=== PATIENT | female | born 1975 | race Caucasian/White ===

== ENCOUNTER 2021-03-26 10:54 | Emergency (ER) | payer OTHER ==
[~2021-03-26] VITALS: Ht 157.5 cm; Wt 92.8 kg
[2021-03-26 11:01] VITALS: BP 130/81
[2021-03-26] MEDS ORDERED: AMOX-422 PO (13:35)
[2021-03-26] MEDS ORDERED: bacitracin 15gm ointment TP ONE (13:35)
[2021-03-26] MEDS ORDERED: TETanus/Pertussis (Acell)/Diphther VAC/PF (Tdap-Adult) 0.5ml syringe IMVAC ONE (13:35)
[2021-03-26] MEDS ORDERED: HYDROcodone/acetaminophen 5mg/325mg tablet PO ONE (14:00)
== END 2021-03-26 15:08 | disposition home or self-care (01) ==
LOC: ER 10:55
DX: S20.01XA Contusion of right breast, initial encounter (principal); Z79.82 Long term (current) use of aspirin; Z79.2 Long term (current) use of antibiotics; W54.0XXA Bitten by dog, initial encounter; Y93.89 Activity, other specified; Y92.89 Other specified places as the place of occurrence of the external cause; Y99.8 Other external cause status
CPT/HCPCS: 90471; 90715; 99283

== ENCOUNTER 2021-03-31 07:28 | Emergency (ER) | payer OTHER ==
[~2021-03-31] VITALS: Ht 157.5 cm; Wt 81.8 kg
[~2021-03-31 07:28] MED LIST: AMOX-422 PO
[2021-03-31 07:38] VITALS: BP 114/67
[2021-03-31] MEDS ORDERED: AMOX-580 PO (09:28)
--- NOTE | 2021-03-31 09:59 | NUR ---
pt was seen and discharged before nurse had seen pt.
== END 2021-03-31 10:01 | disposition home or self-care (01) ==
LOC: ER 07:28
DX: S21.052D Open bite of left breast, subsequent encounter (principal); W54.0XXD Bitten by dog, subsequent encounter; Z88.1 Allergy status to other antibiotic agents
CPT/HCPCS: 99281; 99283

== ENCOUNTER 2021-04-15 11:00 | Inpatient (IN) | payer OTHER ==
[~2021-04-15] VITALS: Ht 157.5 cm; Wt 94.0 kg
[~2021-04-15 11:00] MED LIST changes: -AMOX-422 PO; +AMOX-580 PO
[2021-04-15] MEDS ORDERED: CefTRIAXone/D5W-Rocephin 1gm 50 ML IV ONE (12:25)
[2021-04-15 13:00] LABS: BASOPHILS % (AUTO) 0.5 % (0-1); EOSINOPHILS # (AUTO) 0.1 X10'3 (0-0.9); EOSINOPHILS % (AUTO) 1.3 % (0-6); HEMATOCRIT 38.3 % (35.0-45.0); HEMOGLOBIN 12.5 g/dl (12.0-16.0); LYMPHOCYTES # (AUTO) 3.1 X10'3 (1.1-4.8); LYMPHOCYTES % (AUTO) 30.9 % (21-51); MEAN CORPUSCULAR HEMOGLOBIN 26.5 PG (27.0-31.0); MEAN CORPUSCULAR HGB CONC 32.6 g/dL (33.0-36.5); MEAN CORPUSCULAR VOLUME 81.4 FL (78-98); MEAN PLATELET VOLUME 8.3 FL (7.4-10.4); MONOCYTES # (AUTO) 0.6 X10'3 (0-0.9); MONOCYTES % (AUTO) 6.4 % (2-12); NEUTROPHILS # (AUTO) 6.2 X10'3 (1.8-7.7); NEUTROPHILS % (AUTO) 60.9 % (42-75); PLATELET COUNT 358 X10'3 (140-440); WHITE BLOOD COUNT 10.1 X10'3 (4.5-11.0)
[2021-04-15 13:11] LABS: ALANINE AMINOTRANSFERASE 25 U/L (12-78); ALBUMIN 3.9 G/DL (3.4-5.0); ALKALINE PHOSPHATASE 89 IU/L (46-116); ANION GAP 9 (8-16); ASPARTATE AMINO TRANSFERASE 16 U/L (10-37); BILIRUBIN,TOTAL 0.4 MG/DL (0.1-1.0); BLOOD UREA NITROGEN 14 MG/DL (7-18); BUN/CREATININE RATIO 16.9 (6.6-38.0); CALCIUM 8.8 MG/DL (8.5-10.1); CHLORIDE 104 MMOL/L (99-107); CREATININE 0.83 MG/DL (0.40-0.90); GLUCOSE 87 MG/DL (70-104); POTASSIUM 3.9 MMOL/L (3.5-5.1); SODIUM 138 MMOL/L (135-145); TOTAL CARBON DIOXIDE 24.6 MMOL/L (24-32); TOTAL PROTEIN 7.8 G/DL (6.4-8.2); eGFR 74 ML/MIN
[2021-04-15] MEDS ORDERED: iohexol 300mg/ml 100ml inj. ONE (14:26)
[2021-04-15] MEDS ORDERED: piperacillin/tazo 3.375gm/50ml 50 ML IV ONE (18:00)
[2021-04-15] MEDS ORDERED: vancomycin/NS 1 GM ADD-VANTAGE 250 ML IV ONE (18:00)
[2021-04-15] MEDS ORDERED: RISP1TAB98 PO (18:30)
[2021-04-15] MEDS ORDERED: NICO-630 TOP (18:32)
[2021-04-15] MEDS ORDERED: BUPR150T8 PO (18:32)
[2021-04-15] MEDS ORDERED: potassium Cl 40MEQ/1/2NS 520ml 520 ML IV PRN ×2 (19:30)
[2021-04-15] MEDS ORDERED: magnesium hydroxide 30ml (MOM) UD suspension PO PRN (19:30)
[2021-04-15] MEDS ORDERED: potassium Cl 20 mEq SR tablet PO PRN ×2 (19:30)
[2021-04-15] MEDS ORDERED: mag hydrox/Alum hydrox/simeth 30ml oral suspension PO PRN (19:30)
[2021-04-15] MEDS ORDERED: ondansetron/PF 4mg/2ml inj IV PRN (19:30)
[2021-04-15] MEDS ORDERED: morphine 2 MG/ML inj. syringe IV PRN ×2 (19:30)
[2021-04-15] MEDS ORDERED: LORazepam 1 MG tablet PO ONE (19:40)
[2021-04-15] MEDS: heparin, porcine 5000 units/ml vial SQ SCH (20:00)
[2021-04-15] MEDS: normal saline 1000ml 1,000 ML IV SCH ×2 (20:19→22:11)
[2021-04-15 21:15] VITALS: BP 122/72
[2021-04-15] MEDS: K and/or MAG REPLACEMENT MC SCH (21:30)
[2021-04-15] MEDS: acetaminophen 325mg tablet PO PRN (21:41)
[2021-04-15] MEDS ORDERED: risperiDONE 2mg tablet PO ONE (23:15)
[2021-04-15] MEDS: piperacillin/tazo 3.375gm/50ml 50 ML IV SCH (23:50)
--- NOTE | 2021-04-16 06:25 | NUR ---
Problems reprioritized. Patient report given, questions answered & plan of care reviewed with Juliette LUCIA. Addendum: 04/16/21 at 625 by Joanna Matos RN Amended: Links added.
--- NOTE | 2021-04-16 06:30 | NUR ---
Patient in room [facility]. I have received report from KHARI Marshall and had the opportunity to ask questions and assume patient care.
[2021-04-16 06:42] LABS: BASOPHILS % (AUTO) 0.5 % (0-1); EOSINOPHILS # (AUTO) 0.1 X10'3 (0-0.9); EOSINOPHILS % (AUTO) 2.1 % (0-6); HEMATOCRIT 34.3 % (35.0-45.0); HEMOGLOBIN 11.7 g/dl (12.0-16.0); LYMPHOCYTES # (AUTO) 2.1 X10'3 (1.1-4.8); LYMPHOCYTES % (AUTO) 35.9 % (21-51); MEAN CORPUSCULAR HEMOGLOBIN 27.9 PG (27.0-31.0); MEAN CORPUSCULAR HGB CONC 34.2 g/dL (33.0-36.5); MEAN CORPUSCULAR VOLUME 81.5 FL (78-98); MEAN PLATELET VOLUME 8.5 FL (7.4-10.4); MONOCYTES # (AUTO) 0.5 X10'3 (0-0.9); MONOCYTES % (AUTO) 7.9 % (2-12); NEUTROPHILS # (AUTO) 3.1 X10'3 (1.8-7.7); NEUTROPHILS % (AUTO) 53.6 % (42-75); PLATELET COUNT 322 X10'3 (140-440); RED BLOOD COUNT 4.21 X10'6 (4.20-5.60); RED CELL DISTRIBUTION WIDTH 14.5 % (11.5-14.5); WHITE BLOOD COUNT 5.8 X10'3 (4.5-11.0)
[2021-04-16 07:02] LABS: ALANINE AMINOTRANSFERASE 22 U/L (12-78); ALBUMIN 3.3 G/DL (3.4-5.0); ALKALINE PHOSPHATASE 73 IU/L (46-116); ANION GAP 10 (8-16); ASPARTATE AMINO TRANSFERASE 17 U/L (10-37); BILIRUBIN,TOTAL 0.4 MG/DL (0.1-1.0); BLOOD UREA NITROGEN 13 MG/DL (7-18); BUN/CREATININE RATIO 15.5 (6.6-38.0); CALCIUM 8.5 MG/DL (8.5-10.1); CHLORIDE 107 MMOL/L (99-107); CREATININE 0.84 MG/DL (0.40-0.90); GLUCOSE 92 MG/DL (70-104); SODIUM 141 MMOL/L (135-145); TOTAL CARBON DIOXIDE 24.5 MMOL/L (24-32); TOTAL PROTEIN 6.5 G/DL (6.4-8.2); eGFR 73 ML/MIN
[2021-04-16 07:24] LABS: HEMOGLOBIN A1C 5.5 % (4.5-6.2)
[2021-04-16] MEDS: heparin, porcine 5000 units/ml vial SQ SCH ×2 (07:33→20:28)
[2021-04-16] MEDS: K and/or MAG REPLACEMENT MC SCH ×2 (07:34→20:00)
[2021-04-16] MEDS: vancomycin/NS 1 GM ADD-VANTAGE 250 ML IV SCH ×2 (07:34→20:32)
[2021-04-16] MEDS: acetaminophen 325mg tablet PO PRN ×2 (07:49→20:31)
[2021-04-16 08:00] VITALS: BP 107/53
[2021-04-16] MEDS ORDERED: potassium Cl 2 mEq/ml inj IV ONE (08:00)
[2021-04-16] MEDS: normal saline 1000ml 1,000 ML IV SCH ×2 (08:54→20:31)
[2021-04-16] MEDS: piperacillin/tazo 3.375gm/50ml 50 ML IV SCH ×2 (09:25→17:12)
[2021-04-16 11:29] VITALS: BP 120/66
--- NOTE | 2021-04-16 12:12 | NUR ---
PAGER ID: [phone] MESSAGE: [id number]- Manuelito Galo pt would like to wait and give IV abx another day before drain procedure. Angio notified as well. Thank you- Juliette [phone]
[2021-04-16] MEDS ORDERED: buPROPion SR 150mg tablet PO ONE (13:15)
[2021-04-16] MEDS ORDERED: NICOTINE POLACRILEX 2 MG LOZENGE BC PRN (15:15)
--- NOTE | 2021-04-16 17:28 | NUR ---
PAGER ID: [phone] MESSAGE: [id number]: Joanna Galo - Pt feeling anxious, is it possible to get a Ativan IV 0.5mg dose for her? -Krupa [phone]
--- NOTE | 2021-04-16 17:34 | NUR ---
New orders from Quinten for Ativan 0.5mg IV PRN q6h
[2021-04-16] MEDS: LORazepam 2 mg/ml vial IV PRN (17:56)
--- NOTE | 2021-04-16 18:25 | NUR ---
Problems reprioritized. Patient report given, questions answered & plan of care reviewed with KHARI Lewis.
--- NOTE | 2021-04-16 18:56 | NUR ---
Patient in room [facility]. I have received report from KHARI Gentile and had the opportunity to ask questions and assume patient care.
[2021-04-16 19:00] VITALS: BP 106/59
[2021-04-16] MEDS ORDERED: buPROPion SR 150mg tablet PO SCH (20:00)
[2021-04-16] MEDS: risperiDONE 0.5mg tablet PO SCH (20:29)
[2021-04-16] MEDS ORDERED: non-formulary drug (Risperidone 1 TAB) PO SCH (21:00)
[2021-04-16] MEDS: HYDROcodone/acetaminophen 5mg/325mg tablet PO PRN (22:23)
[2021-04-17 00:59] VITALS: BP 116/68
[2021-04-17] MEDS: piperacillin/tazo 3.375gm/50ml 50 ML IV SCH ×3 (02:52→16:12)
--- NOTE | 2021-04-17 06:23 | NUR ---
Patient in room [facility]. I have received report from KHARI Lewis and had the opportunity to ask questions and assume patient care.
--- NOTE | 2021-04-17 06:25 | NUR ---
Problems reprioritized. Patient report given, questions answered & plan of care reviewed with KHARI Gentile and KHARI Segovia.
[2021-04-17 07:00] VITALS: BP_SYST 118; BP_SYST 124; BP_DIAS 59; BP_DIAS 71
[2021-04-17] MEDS ORDERED: VANCOMYCIN LEVEL IV ONE (07:30)
[2021-04-17] MEDS: K and/or MAG REPLACEMENT MC SCH ×2 (08:00→20:00)
[2021-04-17] MEDS: heparin, porcine 5000 units/ml vial SQ SCH ×2 (08:00→20:23)
[2021-04-17] MEDS: vancomycin/NS 1 GM ADD-VANTAGE 250 ML IV SCH ×2 (08:02→20:22)
[2021-04-17] MEDS: buPROPion SR 150mg tablet PO SCH (08:03)
[2021-04-17 08:26] LABS: BASOPHILS % (AUTO) 0.6 % (0-1); EOSINOPHILS # (AUTO) 0.1 X10'3 (0-0.9); EOSINOPHILS % (AUTO) 2.8 % (0-6); HEMATOCRIT 34.3 % (35.0-45.0); HEMOGLOBIN 11.5 g/dl (12.0-16.0); LYMPHOCYTES # (AUTO) 2.6 X10'3 (1.1-4.8); LYMPHOCYTES % (AUTO) 49.6 % (21-51); MEAN CORPUSCULAR HEMOGLOBIN 27.5 PG (27.0-31.0); MEAN CORPUSCULAR HGB CONC 33.5 g/dL (33.0-36.5); MEAN CORPUSCULAR VOLUME 81.9 FL (78-98); MEAN PLATELET VOLUME 8.7 FL (7.4-10.4); MONOCYTES # (AUTO) 0.4 X10'3 (0-0.9); MONOCYTES % (AUTO) 7.6 % (2-12); NEUTROPHILS # (AUTO) 2.1 X10'3 (1.8-7.7); NEUTROPHILS % (AUTO) 39.4 % (42-75); PLATELET COUNT 304 X10'3 (140-440); RED BLOOD COUNT 4.19 X10'6 (4.20-5.60); RED CELL DISTRIBUTION WIDTH 14.8 % (11.5-14.5); WHITE BLOOD COUNT 5.3 X10'3 (4.5-11.0)
[2021-04-17 09:01] LABS: ALANINE AMINOTRANSFERASE 14 U/L (12-78); ALBUMIN 3.1 G/DL (3.4-5.0); ALKALINE PHOSPHATASE 68 IU/L (46-116); ANION GAP 7 (8-16); ASPARTATE AMINO TRANSFERASE 14 U/L (10-37); BILIRUBIN,TOTAL 0.3 MG/DL (0.1-1.0); BLOOD UREA NITROGEN 8 MG/DL (7-18); BUN/CREATININE RATIO 8.7 (6.6-38.0); CALCIUM 7.8 MG/DL (8.5-10.1); CHLORIDE 111 MMOL/L (99-107); CREATININE 0.92 MG/DL (0.40-0.90); GLUCOSE 86 MG/DL (70-104); POTASSIUM 4.1 MMOL/L (3.5-5.1); SODIUM 142 MMOL/L (135-145); TOTAL CARBON DIOXIDE 24.3 MMOL/L (24-32); TOTAL PROTEIN 6.1 G/DL (6.4-8.2); eGFR 65 ML/MIN
--- NOTE | 2021-04-17 09:39 | NUR ---
Per Quinten, CLARENCE to switch nicotine lozanges to nicotine gum
[2021-04-17] MEDS ORDERED: nicotine prolacrilex 2mg gum BC PRN (09:40)
[2021-04-17] MEDS ORDERED: NICOTINE POLACRILEX 2 MG LOZENGE BC PRN (09:48)
[2021-04-17 11:00] VITALS: BP 133/72
[2021-04-17] MEDS: normal saline 1000ml 1,000 ML IV SCH ×2 (12:03→20:28)
[2021-04-17] MEDS: LORazepam 2 mg/ml vial IV PRN ×2 (12:11→18:55)
--- NOTE | 2021-04-17 12:25 | NUR ---
Pt spoke to Elizabeth regarding puncture wound. Elizabeth is waiting on cultures from [facility] to determine the correct abx to give. Currently I&D procedure is on hold. Notified angio. Surgical consult still pending.
[2021-04-17] MEDS: acetaminophen 325mg tablet PO PRN (14:29)
--- NOTE | 2021-04-17 18:02 | NUR ---
Patient in room [facility]. I have received report from KHARI Plasencia and had the opportunity to ask questions and assume patient care.
[2021-04-17 18:30] VITALS: BP 118/62
--- NOTE | 2021-04-17 18:30 | NUR ---
Patient in room [facility]. I have received report from DAMIAN and had the opportunity to ask questions and assume patient care.
[2021-04-17] MEDS: HYDROcodone/acetaminophen 5mg/325mg tablet PO PRN (18:55)
[2021-04-17] MEDS: lactobacillus rhamnosus 10,000 MMU CELLS/CAPSULE PO SCH (20:22)
[2021-04-17] MEDS: risperiDONE 0.5mg tablet PO SCH (20:23)
[2021-04-17 23:00] VITALS: BP 104/52
[2021-04-18] MEDS: piperacillin/tazo 3.375gm/50ml 50 ML IV SCH ×2 (00:12→09:40)
[2021-04-18 06:16] LABS: BASOPHILS % (AUTO) 0.9 % (0-1); EOSINOPHILS # (AUTO) 0.1 X10'3 (0-0.9); EOSINOPHILS % (AUTO) 2.6 % (0-6); HEMATOCRIT 34.2 % (35.0-45.0); HEMOGLOBIN 11.3 g/dl (12.0-16.0); LYMPHOCYTES # (AUTO) 2.8 X10'3 (1.1-4.8); LYMPHOCYTES % (AUTO) 50.5 % (21-51); MEAN CORPUSCULAR HEMOGLOBIN 27.1 PG (27.0-31.0); MEAN CORPUSCULAR VOLUME 82.1 FL (78-98); MEAN PLATELET VOLUME 8.5 FL (7.4-10.4); MONOCYTES # (AUTO) 0.4 X10'3 (0-0.9); MONOCYTES % (AUTO) 7.3 % (2-12); NEUTROPHILS # (AUTO) 2.1 X10'3 (1.8-7.7); NEUTROPHILS % (AUTO) 38.7 % (42-75); PLATELET COUNT 316 X10'3 (140-440); RED BLOOD COUNT 4.16 X10'6 (4.20-5.60); RED CELL DISTRIBUTION WIDTH 15.2 % (11.5-14.5); WHITE BLOOD COUNT 5.4 X10'3 (4.5-11.0)
--- NOTE | 2021-04-18 06:39 | NUR ---
Problems reprioritized. Patient report given, questions answered & plan of care reviewed with YANCY.
--- NOTE | 2021-04-18 06:45 | NUR ---
Patient in room [facility]. I have received report from KHARI Plasencia and had the opportunity to ask questions and assume patient care.
[2021-04-18 06:53] LABS: ALANINE AMINOTRANSFERASE 18 U/L (12-78); ALBUMIN 3.1 G/DL (3.4-5.0); ALKALINE PHOSPHATASE 62 IU/L (46-116); ANION GAP 8 (8-16); ASPARTATE AMINO TRANSFERASE 11 U/L (10-37); BILIRUBIN,TOTAL 0.3 MG/DL (0.1-1.0); BLOOD UREA NITROGEN 8 MG/DL (7-18); CALCIUM 7.9 MG/DL (8.5-10.1); CHLORIDE 112 MMOL/L (99-107); CREATININE 0.89 MG/DL (0.40-0.90); GLUCOSE 79 MG/DL (70-104); POTASSIUM 3.9 MMOL/L (3.5-5.1); SODIUM 143 MMOL/L (135-145); TOTAL CARBON DIOXIDE 23.4 MMOL/L (24-32); TOTAL PROTEIN 6.1 G/DL (6.4-8.2); eGFR 68 ML/MIN
[2021-04-18 07:30] VITALS: BP 112/55
[2021-04-18] MEDS: buPROPion SR 150mg tablet PO SCH (07:34)
[2021-04-18] MEDS: lactobacillus rhamnosus 10,000 MMU CELLS/CAPSULE PO SCH ×2 (07:34→19:00)
[2021-04-18] MEDS: K and/or MAG REPLACEMENT MC SCH ×2 (07:34→19:01)
[2021-04-18] MEDS: heparin, porcine 5000 units/ml vial SQ SCH (07:34)
[2021-04-18] MEDS: vancomycin/NS 1 GM ADD-VANTAGE 250 ML IV SCH ×2 (07:34→19:00)
--- NOTE | 2021-04-18 08:33 | NUR ---
Spoke to Elizabeth, states pt can go and get the I&D procedure done. Addendum: 04/18/21 at 0835 by Krupa Hamm RN NPO after breakfast.
[2021-04-18] MEDS: LORazepam 2 mg/ml vial IV PRN (09:48)
[2021-04-18 11:30] VITALS: BP 131/71
[2021-04-18 12:00] VITALS: BP 148/82
[2021-04-18 12:20] VITALS: BP 133/80
[2021-04-18] MEDS: HYDROcodone/acetaminophen 5mg/325mg tablet PO PRN ×2 (12:35→19:00)
--- NOTE | 2021-04-18 12:54 | NUR ---
PAGER ID: [phone] MESSAGE: Vaughn GaloB: I&D completed. can patient eat? thank you! [phone]
--- NOTE | 2021-04-18 17:32 | NUR ---
Notified Elizabeth regarding [facility] lab results which showed no growth on an aerobic culture of the right breast
--- NOTE | 2021-04-18 18:19 | NUR ---
Problems reprioritized. Patient report given, questions answered & plan of care reviewed with KHARI Rios.
--- NOTE | 2021-04-18 18:31 | NUR ---
Patient in room [facility]. I have received report from Candi LUCIA and Krupa LUCIA and had the opportunity to ask questions and assume patient care.
[2021-04-18 20:07] VITALS: BP 145/86
[2021-04-18] MEDS: risperiDONE 0.5mg tablet PO SCH (20:28)
[2021-04-19] VITALS: BP 129/55
[2021-04-19 06:04] LABS: BASOPHILS # (AUTO) 0.1 X10'3 (0-0.2); BASOPHILS % (AUTO) 0.8 % (0-1); EOSINOPHILS # (AUTO) 0.2 X10'3 (0-0.9); EOSINOPHILS % (AUTO) 2.5 % (0-6); HEMATOCRIT 34.2 % (35.0-45.0); HEMOGLOBIN 11.3 g/dl (12.0-16.0); LYMPHOCYTES # (AUTO) 2.8 X10'3 (1.1-4.8); LYMPHOCYTES % (AUTO) 44.3 % (21-51); MEAN CORPUSCULAR HEMOGLOBIN 26.9 PG (27.0-31.0); MEAN CORPUSCULAR VOLUME 81.7 FL (78-98); MEAN PLATELET VOLUME 8.4 FL (7.4-10.4); MONOCYTES # (AUTO) 0.5 X10'3 (0-0.9); MONOCYTES % (AUTO) 8.3 % (2-12); NEUTROPHILS # (AUTO) 2.8 X10'3 (1.8-7.7); NEUTROPHILS % (AUTO) 44.1 % (42-75); PLATELET COUNT 315 X10'3 (140-440); RED BLOOD COUNT 4.18 X10'6 (4.20-5.60); RED CELL DISTRIBUTION WIDTH 14.9 % (11.5-14.5); WHITE BLOOD COUNT 6.4 X10'3 (4.5-11.0)
[2021-04-19 06:18] LABS: ALANINE AMINOTRANSFERASE 15 U/L (12-78); ALBUMIN 3.2 G/DL (3.4-5.0); ALBUMIN/GLOBULIN RATIO 1.1 (1.1-1.5); ALKALINE PHOSPHATASE 64 IU/L (46-116); ANION GAP 8 (8-16); ASPARTATE AMINO TRANSFERASE 14 U/L (10-37); BILIRUBIN,TOTAL 0.2 MG/DL (0.1-1.0); BLOOD UREA NITROGEN 10 MG/DL (7-18); BUN/CREATININE RATIO 13.3 (6.6-38.0); CALCIUM 8.1 MG/DL (8.5-10.1); CHLORIDE 110 MMOL/L (99-107); CREATININE 0.75 MG/DL (0.40-0.90); GLUCOSE 87 MG/DL (70-104); POTASSIUM 3.8 MMOL/L (3.5-5.1); SODIUM 142 MMOL/L (135-145); TOTAL CARBON DIOXIDE 23.6 MMOL/L (24-32); TOTAL PROTEIN 6.2 G/DL (6.4-8.2); eGFR 83 ML/MIN
--- NOTE | 2021-04-19 06:30 | NUR ---
Problems reprioritized. Patient report given, questions answered & plan of care reviewed with Alecia LUCIA.
--- NOTE | 2021-04-19 06:30 | NUR ---
Patient in room [facility]. I have received report from KHARI Rios and had the opportunity to ask questions and assume patient care.
[2021-04-19 07:00] VITALS: BP 114/62
[2021-04-19] MEDS: K and/or MAG REPLACEMENT MC SCH (08:00)
[2021-04-19] MEDS: acetaminophen 325mg tablet PO PRN (08:12)
[2021-04-19] MEDS: lactobacillus rhamnosus 10,000 MMU CELLS/CAPSULE PO SCH (08:12)
[2021-04-19] MEDS: buPROPion SR 150mg tablet PO SCH (08:12)
[2021-04-19] MEDS: heparin, porcine 5000 units/ml vial SQ SCH (08:12)
[2021-04-19] MEDS: vancomycin/NS 1 GM ADD-VANTAGE 250 ML IV SCH (08:13)
[2021-04-19] MEDS: LORazepam 2 mg/ml vial IV PRN (10:09)
[2021-04-19 11:00] VITALS: BP 147/81
[2021-04-19] MEDS ORDERED: DOXY-243 PO (12:24)
[2021-04-19] MEDS ORDERED: HYDR-3964 PO (12:24)
== END 2021-04-19 15:33 | disposition home or self-care (01) | DRG 600 ==
LOC: ER 11:00 → SUR 3N 19:30
PROVIDERS: ADMIT Internal Medicine; ATTEND Family Medicine
PROC: BW241ZZ Computerized Tomography (CT Scan) of Chest and Abdomen using Low Osmolar Contrast (ICD-10-PCS; 2021-04-15)
PROC: 0H9T3ZZ Drainage of Right Breast, Percutaneous Approach (ICD-10-PCS; principal; 2021-04-18)
DX: N61.1 Abscess of the breast and nipple (principal); K52.1 Toxic gastroenteritis and colitis; F41.9 Anxiety disorder, unspecified; F17.210 Nicotine dependence, cigarettes, uncomplicated; N64.89 Other specified disorders of breast; F32.9 Major depressive disorder, single episode, unspecified; W54.0XXA Bitten by dog, initial encounter; Y93.89 Activity, other specified; Y92.89 Other specified places as the place of occurrence of the external cause; Y99.8 Other external cause status; Z79.899 Other long term (current) drug therapy; Z86.14 Personal history of Methicillin resistant Staphylococcus aureus infection; Z71.6 Tobacco abuse counseling; T50.905A Adverse effect of unspecified drugs, medicaments and biological substances, initial encounter; Y92.230 Patient room in hospital as the place of occurrence of the external cause
CPT/HCPCS: 10160; 36415; 71260; 76942; 80053; 80202; 83036; 83605; 85025; 87070; 87075; 87081; 96365; 99285; G0378; J0696; J1644; J2060; J2543; J3370; J3480; J7030; Q9967